=== PATIENT | male | born 1985 | race Caucasian/White ===

== ENCOUNTER 2019-01-06 22:12 | Emergency (ER) | payer OTHER ==
[~2019-01-06] VITALS: Ht 182.9 cm; Wt 99.8 kg
[2019-01-06] MEDS ORDERED: PRINIVIL10 MG PO (22:21)
[2019-01-06 23:17] LABS: ABSOLUTE NEUTROPHILS 5.2 thou/uL (1.4-8.2); HEMATOCRIT 42.8 % (42.0-52.0); HEMOGLOBIN 14.7 gm/dL (14.0-18.0); LYMPHOCYTES 32.6 % (24.0-44.0); MCH 29.2 pg (26.0-34.0); MCHC 34.4 g/dL (28.0-37.0); MCV 84.7 fL (80.0-100.0); MONOCYTES 8.2 % (1.0-8.0); PLATELET COUNT 249 thou/uL (150-400); POLYS 55.2 % (36.0-66.0); RBC 5.05 mil/uL (4.50-6.00); RDW 13.8 % (10.5-14.5); WBC 9.4 thou/uL (4.0-11.0)
[2019-01-06 23:23] LABS: ANION GAP 14 mmol/L (7-16); BUN 12 mg/dL (7-18); CALCIUM 9.1 mg/dL (8.5-10.1); CHLORIDE 99 mmol/L (98-107); CO2 23 mmol/L (21-32); CREATININE 0.9 mg/dL (0.7-1.3); GLUCOSE 133 mg/dL (74-106); POTASSIUM 3.4 mmol/L (3.5-5.1); SODIUM 136 mmol/L (136-145)
[2019-01-06 23:31] LABS: TROPONIN-I <0.06 ng/mL (<0.06)
[2019-01-07 00:40] VITALS: BP 183/138
--- NOTE | 2019-01-08 13:11 | EKG ---
[address] [place] [address] ELECTROCARDIOGRAM REPORT Name: DENISE BANDATT Room #: DEP Naila#: [id number] Admission: 01/06/19 Attend Phys: Discharge: 01/07/19 Date of : 85 Report #: [id number] THIS REPORT FOR: //name// [facility] ED Test Date: 2019-01-06 Test Time: 23:20:57 Pat Name: EDWIN BANDA Department: Room: Gender: Brickmason Supervisor: RODO : 1985 Requested By: Tim Eng Order Number: [id number] MD: Cody Arriola Measurements Intervals [place] Rate: 103 P: 23 RI: 123 QRS: 54 QRSD: 90 T: 62 QT: 371 QTc: 486 Interpretive Statements Sinus tachycardia Borderline prolonged QT interval No previous ECG available for comparison Electronically Signed On 01-08-2019 13:11:36 TIRE MOLD TESTER by Cody Arriola [email or web address] <ELECTRONICALLY SIGNED> By: Cody Arriola MD, [facility] 01/08/19 1311 2320 2320 Cody Arriola MD, FACC /EPI
--- NOTE | 2019-01-08 13:11 | EKG ---
[address] [place] [address] ELECTROCARDIOGRAM REPORT Name: DENISE BANDATT Room #: DEP Naila#: [id number] Admission: 01/06/19 Attend Phys: Discharge: 01/07/19 Date of : 85 Report #: [id number] THIS REPORT FOR: //name// [facility] ED Test Date: 2019-01-06 Test Time: 22:41:34 Pat Name: EDWIN BANDA Department: Room: Gender: Chicken Dresser: : 1985 Requested By: Tim Eng Order Number: [id number] MD: Cody Arriola Measurements Intervals [place] Rate: 99 P: 37 AK: 121 QRS: 63 QRSD: 91 T: 72 QT: 353 QTc: 453 Interpretive Statements Sinus rhythm Normal tracing No previous ECG available for comparison Electronically Signed On 01-08-2019 13:11:29 SNOW PLOW TRACTOR OPERATOR by Cody Arriola [email or web address] <ELECTRONICALLY SIGNED> By: Cody Arriola MD, [facility] 01/08/19 1311 2241 2241 Cody Arriola MD, FACC /EPI
== END 2019-01-07 01:47 | disposition home or self-care (01) ==
LOC: ER 22:12
PROVIDERS: Emergency Medicine
DX: B34.9 Viral infection, unspecified (principal); I10 Essential (primary) hypertension; M10.9 Gout, unspecified; F17.210 Nicotine dependence, cigarettes, uncomplicated